=== PATIENT | male | born 1995 | race Caucasian/White ===

== ENCOUNTER 2024-03-01 20:30 | Emergency (ER) | payer BC ==
[2024-03-01] MEDS: Take Home: Amoxicillin/Clavulanate K 875-125 MG Tab, 2 Tab Pack PO ONE (20:50)
[2024-03-03] MEDS ORDERED: Take Home: Amoxicillin/Clavulanate K 875-125 MG Tab, 2 Tab Pack ONE (12:25)
== END 2024-03-01 20:53 | disposition home or self-care (01) ==
LOC: VM.ED 20:30
DX: S09.90XA Unspecified injury of head, initial encounter (principal); W54.0XXA Bitten by dog, initial encounter
CPT/HCPCS: 99283; A9270

== ENCOUNTER 2024-07-12 21:55 | Emergency (ER) | payer BC ==
[2024-07-12] MEDS ORDERED: Lidocaine 1% 10 ML MDV ONE (22:03)
[2024-07-12] MEDS: Lidocaine 1% 10 ML MDV INJECT ONE ×2 (22:16)
[2024-07-12] MEDS: Acetaminophen 325 MG Tab PO ONE (22:30)
[2024-07-12 22:34] LABS: BASOPHILS PERCENT AUTO 0.1 % (0.2-1.2); EOSINOPHILS PERCENT AUTO 0.1 % (0.0-4.0); HEMATOCRIT 40.8 % (40.0-52.0); HEMOGLOBIN 14.9 g/dL (14.0-18.0); IMMATURE GRAN ABSOLUTE AUTO 0.01 x10^3/uL (0.00-0.07); LYMPHOCYTES ABSOLUTE AUTO 0.4 x10^3/uL (1.0-4.8); LYMPHOCYTES PERCENT AUTO 3.6 % (25.0-50.0); MEAN CORPUSCULAR HEMOGLOBIN 31.9 pg (26.0-32.0); MEAN CORPUSCULAR HGB CONC 36.5 g/dL (32.0-36.0); MEAN CORPUSCULAR VOLUME 87.4 fL (78.0-93.0); MONOCYTES ABSOLUTE AUTO 0.7 x10^3/uL (0.0-0.8); MONOCYTES PERCENT AUTO 6.7 % (2.0-11.0); NEUTROPHILS ABSOLUTE AUTO 9.2 x10^3/uL (1.8-7.7); NEUTROPHILS PERCENT AUTO 89.4 % (50.0-80.0); PLATELET COUNT,PLT 198 x10^3/uL (130-400); RED BLOOD CELL COUNT 4.67 x10^6/uL (4.5-6.0); WHITE BLOOD CELL COUNT,WBC 10.3 x10^3/uL (4.0-10.0)
[2024-07-12] MEDS: Diphtheria,Pertussis(Acell),Tetanus Vaccine 0.5 ML Syringe IM ONE (22:38)
[2024-07-12 22:41] LABS: ANION GAP 14.1 mmol/L (5-15); BLOOD UREA NITROGEN,BUN 12 mg/dL (7-18); CALCIUM 8.2 mg/dL (8.5-10.1); CARBON DIOXIDE,CO2 24 mmol/L (21-32); CHLORIDE,CL 98 mmol/L (98-107); CREATININE 0.9 mg/dL (0.70-1.30); ESTIMATED GFR 118 mL/min (>=60); GLUCOSE RANDOM 156 mg/dL (70-99); POTASSIUM,K 3.1 mmol/L (3.5-5.1); SODIUM,NA 133 mmol/L (136-145)
[2024-07-12] MEDS: cefTRIAXone 2 GM Vial IVPUSH ONE (22:45)
[2024-07-12] MEDS ORDERED: Ketorolac 30 MG/ML SDV IVPUSH ONE (23:06)
[2024-07-12] MEDS: Ketorolac 15 MG/ML SDV IVPUSH ONE (23:20)
== END 2024-07-12 23:38 | disposition home or self-care (01) ==
LOC: VM.ED 21:55
DX: L03.012 Cellulitis of left finger (principal); E87.6 Hypokalemia; Z79.899 Other long term (current) drug therapy; Z23 Encounter for immunization
CPT/HCPCS: 64450; 73140-F1; 80048; 85025; 90471; 90715; 96374; 96375; 99283; 99283-25; A9270-GY; J0696; J1885; J2003